=== PATIENT | female | born 1995 | race American Indian/Alaskan Native ===

== ENCOUNTER 2017-09-20 06:17 | Inpatient (IN) | payer MEDICAID ==
[2017-09-20] MEDS ORDERED: LACTATED RINGERS 1,000 ML IV ONE (07:07)
[2017-09-20] MEDS ORDERED: LACTATED RINGERS 1,000 ML ONE (07:14)
[2017-09-20] MEDS ORDERED: ePHEDrine SULFATE IV PRN (07:56)
[2017-09-20] MEDS ORDERED: STADOL IV PRN (07:56)
[2017-09-20] MEDS ORDERED: BRETHINE SUB-Q PRN (07:56)
[2017-09-20] MEDS ORDERED: XYLOCAINE 2% INFILTRATI ONE (07:56)
[2017-09-20] MEDS ORDERED: LACTATED RINGERS 1,000 ML IV SCH (08:00)
[2017-09-20] MEDS ORDERED: PITOCin/NS 20 UNIT/1000ML DRIP 20 UNITS/1,000 ML BAG IV SCH (08:00)
[2017-09-20] MEDS ORDERED: PITOCin/NS 30 UNIT/500ML 30 UNITS/500 ML BAG IV SCH (08:00)
[2017-09-20] MEDS ORDERED: BRETHINE IVP PRN (08:05)
[2017-09-20 08:40] LABS: Hematocrit 34.2 % (30.3-42.9); Hemoglobin 11.5 gm/dl (10.1-14.3); Mean Corpuscular HGB Conc 34 % (30-34); Mean Corpuscular Hemoglobin 31 pg (28-32); Mean Corpuscular Volume 92 fl (79-97); Platelet Count 229 K/mm3 (140-440); Red Blood Count 3.72 M/mm3 (3.65-5.03); Red Cell Distribution Width 13.2 % (13.2-15.2); White Blood Count 13.1 K/mm3 (4.5-11.0)
[2017-09-20] MEDS ORDERED: NARCAN 2 MG/2 ML IV PRN (09:13)
--- NOTE | 2017-09-20 09:13 | Anesthesia Consultation ---
Anesthesia Consult and Med Hx Date of service: 09/20/17 - Airway Anesthetic Teeth Evaluation: Good Mallampati Class: Class II Intubation Access Assessment: Probably Good - Pre-Operative Health Status ASA Pre-Surgery Classification: ASA2, Emergency Proposed Anesthetic Plan: Epidural, Spinal - Pulmonary Hx Asthma: No COPD: No Hx Pneumonia: No - Cardiovascular System Hx Hypertension: No - Central Nervous System Hx Seizures: No Hx Psychiatric Problems: No - Endocrine Hx Renal Disease: No Hx End Stage Renal Disease: No Hx Hypothyroidism: No Hx Hyperthyroidism: No - Hematic Hx Anemia: No Hx Sickle Cell Disease: No - Other Systems Hx Alcohol Use: No
[2017-09-20] MEDS ORDERED: fentaNYL-BUPIV 2 MCG/ML-0.125% 200 MCG/100 ML BAG EPIDURAL SCH (10:00)
[2017-09-20] MEDS ORDERED: MINERAL OIL ONE (17:03)
--- NOTE | 2017-09-20 17:41 | History and Physical Report ---
History of Present Illness Date of examination: 09/20/17 Date of admission: 09/20/17 08:17 Chief complaint: I'm in labor History of present illness: Patient is a 21 year old who presented in active labor with dilation to 5cm. Her course was uncomplicated and she received care at [facility]. Past History Past Medical History: no pertinent history Past Surgical History: no surgical history Social history: single - Obstetrical History Expected Date of Delivery: 09/26/17 Actual Gestation: 39 Week(s) 2 Day(s) : 2 Medications and Allergies Allergies Allergy/AdvReac Type Severity Reaction Status Date / Time No Known Allergies Allergy Unverified 09/20/17 06:26 Home Medications Medication Instructions Recorded Confirmed Last Taken Type Vitamin Tablet 1 tab PO DAILY 09/20/17 09/20/17 1 Day Ago History ~09/19/17 Active Meds: Active Medications Butorphanol Tartrate (Stadol) 2 mg IV Q2H PRN PRN Reason: Pain , Severe (7-10) Last Admin: 09/20/17 08:38 Dose: 2 mg Ephedrine Sulfate (Ephedrine Sulfate) 10 mg IV Q2M PRN PRN Reason: Hypotension Stop: 09/20/17 18:00 Lactated Ringer's (Lactated Ringers) 1,000 mls @ 125 mls/hr IV DIRECT TALAT Last Admin: 09/20/17 09:07 Dose: 125 mls/hr Oxytocin/Sodium Chloride (Pitocin/Ns 20 Unit/1000ml Drip) 20 units in 1,000 mls @ 125 mls/hr IV DIRECT TALAT Oxytocin/Sodium Chloride (Pitocin/Ns 30 Unit/500ml) 30 units in 500 mls @ 1 mls /hr IV TITR TALAT; 1 MILLIUNITS/MIN PRN Reason: Protocol Last Titration: 09/20/17 15:45 Dose: 14 milliunits/min, 14 mls/hr Fentanyl/Bupivacaine/Sodium Chlor (Fentanyl-Bupiv 2 Mcg/Ml-0.125%) 200 mcg in 100 mls @ 12 mls/hr EPIDURAL TITR TALAT PRN Reason: Protocol Last Admin: 09/20/17 09:53 Dose: 12 mls/hr Mineral Oil (Mineral Oil) 30 ml PO QHS PRN PRN Reason: Constipation Naloxone HCl (Narcan 2 Mg/2 Ml) 0.2 mg IV Q5M PRN PRN Reason: Respiratory sedation Terbutaline Sulfate (Brethine) 0.25 mg SUB-Q ONCE PRN PRN Reason: Hyperstimulation/Hypertonicity Terbutaline Sulfate (Brethine) 0.25 mg IVP ONCE PRN PRN Reason: Hyperstimulation/Hypertonicity Review of Systems All systems: negative Genitourinary: pelvic pain, contractions - Vital Signs Vital signs: Vital Signs Pulse BP Pulse Ox 94 H 113/64 98 09/20/17 06:31 09/20/17 06:31 09/20/17 06:31 Temp Pulse Resp BP Pulse Ox 97.2 F L 95 H 16 115/56 99 09/20/17 14:33 09/20/17 17:38 09/20/17 14:33 09/20/17 17:38 09/20/17 17:02 - Physical Exam Breasts: Cardiovascular: Regular rate, Normal S1, Normal S2 Lungs: Positive: Clear to auscultation, Normal air movement Abdomen: Positive: normal appearance, soft, normal bowel sounds. Negative: distention, tenderness Genitourinary (Female): Positive: normal external genitalia Vulva: both: normal Vagina: Positive: normal moisture. Negative: discharge Cervix: Negative: lesion, discharge Uterus: Positive: normal size, normal contour Adnexa: both: normal Anus/Rectum: Positive: normal perianal skin, heme negative. Negative: rectal mass, hemorrhoids Extremities: Deep Tendon Reflex Grade: Normal +2 - Obstetrical Cervical Dilatation: 5 Cervical Effacement Percentage: 70 station: -2 Uterine Contraction Pattern: Regular Results Result Diagrams: 09/21/17 05:28 Abnormal lab results 09/20/17 Range/Units 08:05 WBC 13.1 H (4.5-11.0) K/mm3 All other labs normal. Assessment and Plan IUP @39 weeks in active labor. Admit for labor. Augment if needed. AROM when able. Anticipate
--- NOTE | 2017-09-20 17:46 | Procedure Note ---
OB Delivery Note - Delivery Date of Delivery: 09/20/17 Surgeon: ROSA LISA Estimated blood loss: 200cc - Vaginal Delivery presentation: vertex Delivery position: OA Intrapartum events: none Delivery induction: none Delivery augmentation: rupture of membranes, pitocin Delivery monitor: external FHT, external uterine Route of delivery: Delivery placenta: spontaneous Delivery cord: nuchal cord (x1), 3 umbilical vessels Episiotomy: none Delivery laceration: none Anesthesia: epidural Delivery comments: Viable male delivered over intact perineum with loose nuchal cord x 1 easily reduced on the perineum. Weight 7 pounds 14 ounces. Apgars 9,9. Infant placed on maternal chest. Cord clamped and cut when done pulsating. Placenta delivered spontaneously and intact with 3vc. No lacerations. Excellent hemostasis. Patient tolerated procedure well. - A at 1 minute: 8 at 5 minutes: 9 Gender: Male
[2017-09-20] MEDS ORDERED: TUCKS PAD TP PRN (20:49)
[2017-09-20] MEDS ORDERED: ZOFRAN IV PRN (20:49)
[2017-09-20] MEDS ORDERED: TYLENOL PO PRN (20:49)
[2017-09-20] MEDS ORDERED: MILK OF MAGNESIA PO PRN (20:49)
[2017-09-20] MEDS ORDERED: SODIUM CHLORIDE FLUSH SYRINGE 10 ML IV SCH (20:49)
[2017-09-20] MEDS ORDERED: PHENERGAN PR PRN (20:49)
[2017-09-20] MEDS ORDERED: LANSINOH TP PRN (20:49)
[2017-09-20] MEDS ORDERED: PHENERGAN PO PRN (20:49)
[2017-09-20] MEDS ORDERED: BENADRYL PO PRN (20:49)
[2017-09-20] MEDS ORDERED: DULCOLAX PR PRN (20:49)
[2017-09-20] MEDS: COLACE PO SCH (21:05)
[2017-09-20] MEDS: MOTRIN PO SCH (21:05)
[2017-09-20] MEDS ORDERED: SENOKOT S PO SCH (22:00)
[2017-09-20] MEDS ORDERED: MINERAL OIL PO PRN (22:00)
[2017-09-21] MEDS: MOTRIN PO SCH ×3 (05:13→23:24)
[2017-09-21 05:50] LABS: Hematocrit 31.2 % (30.3-42.9); Hemoglobin 10.6 gm/dl (10.1-14.3)
[2017-09-21] MEDS: COLACE PO SCH ×2 (09:27→22:03)
[2017-09-21] MEDS: NORCO 5/325 PO PRN ×2 (09:28→20:59)
[2017-09-21] MEDS ORDERED: PRENATAL VITAMIN PO SCH (10:00)
--- NOTE | 2017-09-21 15:31 | Progress Note ---
Assessment and Plan PPD 1 s/p . Doing well. Plan for d/c in the morning if baby ok to go Subjective - Subjective Date of service: 09/21/17 Interval history: Patient is a 21 year old who presented in active labor with dilation to 5cm. Her course was uncomplicated and she received care at [facility]. Patient reports: appetite normal, voiding normally, pain well controlled, ambulating normally [place]: doing well Objective - Vital Signs Latest vital signs: Vital Signs Temp Pulse Resp BP BP Pulse Ox 09/21/17 12:06 97.5 F L 90 18 112/57 99 09/21/17 09:28 20 09/21/17 08:15 99.6 F 75 18 118/78 100 09/21/17 01:22 86 97/46 98 09/21/17 00:20 98.4 F 82 18 97/46 96 09/20/17 20:44 85 111/59 99 09/20/17 20:40 98.1 F 84 18 111/59 100 09/20/17 18:52 91 H 109/57 09/20/17 18:37 81 105/58 09/20/17 18:24 76 102/53 09/20/17 17:52 142 H 126/86 09/20/17 17:38 95 H 115/56 09/20/17 17:24 107 H 119/58 09/20/17 17:09 107 H 126/53 09/20/17 17:02 99 H 99 09/20/17 16:57 87 100 09/20/17 16:52 90 104/59 100 09/20/17 16:47 79 100 09/20/17 16:42 87 100 09/20/17 16:39 82 110/58 09/20/17 16:37 83 100 09/20/17 16:32 83 100 09/20/17 16:27 82 100 09/20/17 16:22 81 111/57 100 09/20/17 16:18 107 H 54 L 09/20/17 16:17 72 100 09/20/17 16:12 86 93 09/20/17 16:07 82 100 09/20/17 16:02 85 99 09/20/17 15:57 90 98 09/20/17 15:52 93 H 104/54 97 09/20/17 15:49 77 103/53 09/20/17 15:47 76 97 09/20/17 15:42 77 99 09/20/17 15:39 90 97/46 09/20/17 15:37 93 H 88 09/20/17 15:36 91 H 90 Intake and Output 09/21/17 09/21/17 09/21/17 06:59 14:59 22:59 Intake Total 360 Balance 360 Intake: Oral 360 Other: Total, Intake Amount 120 # Voids Void 1 - Exam Cardiovascular: Present: Regular rate, Normal S1, Normal S2 Lungs: Present: Clear to auscultation, Normal air movement Abdomen: Present: normal appearance, soft, normal bowel sounds Uterus: Present: normal, bogginess Extremities: Present: normal Deep Tendon Reflex Grade: Normal +2
[2017-09-22] MEDS: MOTRIN PO SCH (05:59)
--- NOTE | 2017-09-22 08:25 | Progress Note ---
Assessment and Plan A/P PPD #2 doing well ambulating well tolerating pain control and diet d/c home f/u in 4 weeks undecided control H/H 11.5/34.2--10.6/31.2 A+ VSS Subjective - Subjective Date of service: 09/22/17 Principal diagnosis: Patient reports: appetite normal, voiding normally, pain well controlled, flatus , ambulating normally [place]: doing well, nursing well, bottle feeding Objective - Vital Signs Latest vital signs: Vital Signs Temp Pulse Resp BP Pulse Ox 09/22/17 00:45 98.3 F 80 09/21/17 16:53 98.3 F 83 48 H 105/73 99 09/21/17 12:06 97.5 F L 90 18 112/57 99 09/21/17 09:28 20 Intake and Output 09/21/17 09/22/17 09/22/17 23:59 07:59 15:59 Intake Total 360 360 Balance 360 360 Intake: Oral 360 360 Other: Total, Intake Amount 360 120 # Voids Void 1 1 - Exam Breasts: Present: normal Cardiovascular: Present: Regular rate, Normal S1 Lungs: Present: Clear to auscultation (-W), Normal air movement Abdomen: Present: normal appearance, soft, normal bowel sounds. Absent: distention, tenderness, guarding Vulva: both: normal Uterus: Present: normal, firm, fundal height below umbilicus. Absent: bogginess , tenderness Extremities: Present: normal Deep Tendon Reflex Grade: Normal +2
--- NOTE | 2017-09-22 08:25 | Discharge Summary ---
Providers - Providers Date of Admission: 09/20/17 08:17 Date of discharge: 09/22/17 Attending physician: MALIK GUZMAN Primary care physician: MALIK GUZMAN Hospitalization Reason for admission: active labor Delivery: Episiotomy: none Laceration: none Other procedures: none complications: none [place] baby: male Condition at discharge: Good Disposition: DC-01 TO HOME OR SELFCARE Plan - Provider Discharge Summary Activity: routine, no sex for 6 weeks, no strenuous exercise Diet: routine Instructions: routine Additional instructions: [] Smoking cessation referral if applicable(refer to patient education folder for contact #) [] Refer to [facility]'s [facility] Booklet Call your doctor immediately for: * Fever > 100.5 * Heavy vaginal bleeding ( >1 pad per hour) * Severe persistent headache * Shortness of breath * Reddened, hot, painful area to leg or breast * Drainage or odor from incision. * Keep incision clean and dry at all times and follow doctor's instructions regarding bathing/showering - Follow up plan Follow up: MALIK GUZMAN MD [Primary Care Provider] - 10/20/17
[2017-09-22 10:11] VITALS: BP 102/65
== END 2017-09-22 11:15 | disposition home or self-care (01) | DRG 775 ==
LOC: TRG 06:17 → LD 08:17 → OB 20:02
PROVIDERS: ADMIT Obstetrics & Gynecology; ATTEND Obstetrics & Gynecology
PROC: 10E0XZZ Delivery of Products of Conception, External Approach (ICD-10-PCS; principal; 2017-09-20)
PROC: 3E0R3BZ Introduction of Anesthetic Agent into Spinal Canal, Percutaneous Approach (ICD-10-PCS; 2017-09-20)
PROC: 00HU33Z Insertion of Infusion Device into Spinal Canal, Percutaneous Approach (ICD-10-PCS; 2017-09-20)
DX: O69.1XX0 Labor and delivery complicated by cord around neck, with compression, not applicable or unspecified (principal); Z3A.39 39 weeks gestation of pregnancy; Z37.0 Single live birth
CPT/HCPCS: 36415; 85014; 85018; 85027; 86592; 86850; 86900; 86901; 99211; G0463; J0595; J2590; J7120